=== PATIENT | male | born 1960 | race Caucasian/White ===

== ENCOUNTER → 2016-05-21 | Day surgery (SDC) | payer OTHER ==
[~2016-05-21] MED LIST: BUPIVACAINE/EPINEPHRINE 0.5% PF 30 ML VIAL ONE; CALTTAB2 PO; COUM5TAB PO; KETOROLAC TROMETHAMINE 30 MG/ML (IVP) VIAL IV PUSH ONE; LACTATED RINGER'S 1000 ML INJ 1,000 ML ONE; MIDAZOLAM HCL 2 MG/2 ML VIAL ONE; NORC7.5T PO; ONDANSETRON HCL 4 MG/2 ML VIAL IV PUSH ONE; PROPOFOL 200 MG/20 ML AMP IV ONE; SULF1TAB47 PO; VITA400C58 PO; WELL150T PO; ceFAZolin INJ 1,000 MG VIAL ONE
--- NOTE | 2016-05-23 13:19 | MP ---
cc: MARTÍN SPAIN DATE OF SURGERY: 05/21/2016 PREOPERATIVE DIAGNOSIS: Right knee lateral meniscus tear. POSTOPERATIVE DIAGNOSES Right knee lateral meniscus tear. PROCEDURE Right knee arthroscopic partial lateral meniscectomy. SURGEON Dr. Martín Spain ANESTHESIA General. REVIEW OF SYSTEMS Less than 10 cc. TOURNIQUET TIME: Zero COMPLICATIONS: None. HISTORY: The patient 55-year male who injured the right knee had persistent pain. IN REGARDS TO CONDITION: Failed conservative clinical exam as well as MRI confirmed the above-named findings. The patient counseled as and alternatives of the posterior procedure wish to surgery. A written consent was obtained the patient was identified by name, take over the supine on the general anesthesia was administered as well as 1 gram of IV Ancef. Right thigh carefully placed in well-padded leg jones. The right lower extremity prepped and draped using as alcohol, Hibiclens solution and DuraPrep solution. After time-out was performed a medial lateral parapatellar arthroscope portal was established patellofemoral joint did reveal evidence of grade 2 chondromalacia Department revealed mild grade 1 and grade 2 chondromalacia changes. No evidence of meniscal tearing the intercondylar notch of the anterior management trainee program stores cruciate ligaments to be intact. The lateral compartment revealed a large tear lateral meniscus extending from the anterior horn, mid body and in and into the posterior horn. There is unstable meniscal tissue upon probing. An arthroscopic biter followed by an source shaver was introduced in the lateral compartment for partial lateral meniscectomy, the meniscal rim was probed and noted be stable at the meniscectomy was evidence of grade 2 and grade 3 chondromalacia changes of the lateral femoral condyle and also evidence of grade 2 grade 3 and even focal grade 4 chondromalacia of the lateral tibial plateau. The shaver used to perform a gentle chondroplasty to smooth any unstable cartilage fragmentation of the lateral femoral condyle and lateral tibial plateau. At the conclusion of surgical procedure 30 mL of some Marcaine with epinephrine was injected into the knee joint. The arthroscopic portals were closed 3-0 Prolene suture. Sterile dressing applied. The patient tolerated the procedure well with no intraoperative complications noted. MD TAWANNA Kern/aliyah /3:05 PM 1:02 PM
== END | disposition home or self-care (01) ==
LOC: ESDC 12:35
PROVIDERS: ATTEND Orthopaedic Surgery Sports Medicine
DX: S83.281A Other tear of lateral meniscus, current injury, right knee, initial encounter (principal)
CPT/HCPCS: 01400; 29881; J0690; J1885; J2250; J2405; J3010; J7120